=== PATIENT | female | born 1970 | race Caucasian/White ===

== ENCOUNTER 2020-12-03 07:18 | Day surgery (SDC) | payer MEDICARE, MEDICAID ==
[~2020-12-03 07:18] MED LIST: Bupivacaine 0.5% 10 ML SDV ONE; Lactated Ringers 1,000 ML IV SCH; Lidocaine 1% 20 ML MDV ONE; Lidocaine 2% 5 ML SDV ONE; Midazolam 1 MG/ML 2 ML SDV ONE; Ondansetron 4 MG/2 ML SDV ONE; Propofol 200 MG/20 ML SDV ONE; Sodium Chloride 0.9% 20 ML ONE; ceFAZolin 1 GM Vial ONE; fentaNYL 100 MCG/2 ML SDV ONE
--- NOTE | 2020-12-03 07:49 | PCM.PREANE ---
Preanesthetic Assessment - Anesthesia/Transfusion/Family Hx Anesthesia History: Prior Anesthesia Without Reaction Family History of Anesthesia Reaction: No Transfusion History: Unknown Intubation History: Unknown - Review of Systems General: No Symptoms Pulmonary: No Symptoms Cardiovascular: No Symptoms Gastrointestinal: No Symptoms Neurological: No Symptoms Other: Reports: None - Physical Assessment Vital Signs: Last Vital Signs Temp 36 C L 12/03/20 07:19 Pulse 72 12/03/20 07:19 Resp 16 12/03/20 07:19 BP 140/62 12/03/20 07:19 Pulse Ox 99 12/03/20 07:19 Height: 5 ft 6 in Weight: 107.048 kg ASA Class: 3 Mental Status: Alert & Oriented x3 Airway Class: Mallampati = 2 Dentition: Reports: Broken Tooth/Teeth, Missing Tooth/Teeth Thyro-Mental Finger Breadths: 3 Mouth Opening Finger Breadths: 3 ROM/Head Extension: Limited/Partial Lungs: Clear to Auscultation, Decreased Breath Sounds Cardiovascular: Regular Rate, Regular Rhythm - Lab Values: Laboratory Last Values POC Glucose 133 mg/dL (60-110) H 12/03/20 07:09 SARS-CoV-2 RNA (NICHOLAS) NEGATIVE (NEGATIVE) 12/03/20 06:15 - Allergies Allergies/Adverse Reactions: Allergies Allergy/AdvReac Type Severity Reaction Status Date / Time nathalia Allergy Swelling Verified 12/03/20 07:29 morphine Allergy Itching Verified 12/03/20 07:29 - Blood Blood Available: No - Anesthesia Plan Pre-Op Medication Ordered: None - Acknowledgements Anesthesia Type Planned: MAC Pt an Appropriate Candidate for the Planned Anesthesia: Yes Alternatives and Risks of Anesthesia Discussed w Pt/Guardian: Yes Pt/Guardian Understands and Agrees with Anesthesia Plan: Yes PreAnesthesia Questionnaire HEENT History: Reports: Cataract Cardiovascular History: Reports: CAD, Heart Failure (EF 25 %), High Cholesterol, Hypertension, CA (non STEM CA last summer), PVD Respiratory History: Reports: COPD Other Respiratory History: does not have inhalers Gastrointestinal History: Reports: None Genitourinary History: Reports: Acute Renal Failure (ESRD dyalised MW), Diabetic Nephropathy 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: Musculoskeletal History: Reports: Fracture Other Musculoskeletal History: currently has fx left ankle- is in a boot Neurological History: Reports: CVA, Neuropathy, Diabetic Other Neuro History: had a stroke 4 years ago- some weakness on left side Psychiatric History: Reports: Anxiety, Depression Endocrine/Metabolic History: Reports: Diabetes, Type I, IDDM, Obesity/BMI 30+ (BMI 38.1) Hematologic History: Reports: Blood Transfusion(s) Immunologic History: Reports: None Dermatologic History: Reports: Other (See Below) Other Dermatologic History: 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 in [place] - Past Surgical History Head Surgeries/Procedures: Reports: None HEENT Surgical History: Reports: Cataract Surgery Cardiovascular Surgical History: Reports: Coronary Artery Bypass, Vascular Surgery Other Cardiovascular Surgeries/Procedures: right Fem-Pop bypass graft, insertion of AV fistula left upper chest, insertion of Port-a-cath, possible left illiac endarterectomy GI Surgical History: Reports: Cholecystectomy, Colon, Colostomy (revision and reversal) Other GI Surgeries/Procedures: hx of Colostomy- revision and reversal Female Surgical History: Reports: Section (x2), Hysterectomy, Salpingo-Oophorectomy Musculoskeletal Surgical History: Reports: Amputation, Other (See Below) Other Musculoskeletal Surgeries/Procedures:: ORIF right ankle- screws removed, has had amputation of bilateral fore foot - SUBSTANCE USE Tobacco Use Status *Q: Current Every Day Tobacco User (1/2 ppd) Tobacco Use Within Last Twelve Months: Cigarettes Recreational Drug Use History: No - HOME MEDS Home Medications: Home Meds Acetaminophen 325 mg PO ASDIRECTED PRN 11/28/20 [History] Aspirin [Adult Low Dose Aspirin EC] 81 mg PO DAILY 11/28/20 [History] Clopidogrel Bisulfate [Plavix] 75 mg PO DAILY 11/28/20 [History] Gabapentin [Neurontin] 600 mg PO BID 11/28/20 [History] Gabapentin [Neurontin] 900 mg PO BEDTIME 11/28/20 [History] Insulin Glarg,Human.Rec.Analog [Lantus] 10 units SQ BEDTIME 11/28/20 [History] Insulin Lispro [HumaLOG] 0 unit SQ ASDIRECTED 11/28/20 [History] Sertraline HCl 100 mg PO DAILY 11/28/20 [History] atorvaSTATin Calcium [Atorvastatin Calcium] 80 mg PO BEDTIME 11/28/20 [History] carvediloL [Carvedilol] 6.25 mg PO BID 11/28/20 [History] - CURRENT (IN HOUSE) MEDS Current Meds: Current Medications Lactated Ringer's (Ringers, Lactated) 1,000 mls @ 125 mls/hr IV ASDIRECTED JAMES Discontinued Medications Bupivacaine HCl (Sensorcaine-Mpf 0.5%) Confirm Administered Dose 10 ml .ROUTE .STK-MED ONE Stop: 12/03/20 07:19 Cefazolin Sodium (Ancef) Confirm Administered Dose 2 gm .ROUTE .STK-MED ONE Stop: 12/03/20 06:57 Fentanyl (Sublimaze) Confirm Administered Dose 100 mcg .ROUTE .STK-MED ONE Stop: 12/03/20 06:57 Sodium Chloride (Normal Saline) Confirm Administered Dose 20 mls @ as directed .ROUTE .STK-MED ONE Stop: 12/03/20 06:57 Lidocaine (Xylocaine-Mpf 2%) Confirm Administered Dose 5 ml .ROUTE .STK-MED ONE Stop: 12/03/20 06:57 Lidocaine HCl (Xylocaine 1%) Confirm Administered Dose 20 ml .ROUTE .STK-MED ONE Stop: 12/03/20 07:19 Midazolam HCl (Versed 1 Mg/Ml) Confirm Administered Dose 2 mg .ROUTE .STK-MED ONE Stop: 12/03/20 06:57 Ondansetron HCl (Zofran) Confirm Administered Dose 4 mg .ROUTE .STK-MED ONE Stop: 12/03/20 06:57 Propofol (Diprivan 20 Ml) Confirm Administered Dose 200 mg .ROUTE .STK-MED ONE Stop: 12/03/20 06:57
[2020-12-03] MEDS ORDERED: Lactated Ringers 1,000 ML IV SCH (09:00)
--- NOTE | 2020-12-03 09:02 | PCM.OPNOTE ---
- General Post-Op/Procedure Note Date of Surgery/Procedure: 12/03/20 Operative Procedure(s): Removal of dual-lumen dialysis access catheter Pre Op Diagnosis: Hemodialysis-dependent renal failure Post-Op Diagnosis: Same Anesthesia Technique: Local Primary Surgeon: Javon Mcfarland Fluid Replacement, Intraop: 50 EBL in mLs: 5 Condition: Good Free Text/Narrative:: DICTATION [id number] CPT CODE 76684
--- NOTE | 2020-12-03 09:58 | PCM.POSTAN ---
POST ANESTHESIA ASSESSMENT - MENTAL STATUS Mental Status: Alert, Oriented - VITAL SIGNS Vital Signs: Last Vital Signs Temp 35.9 C L 12/03/20 08:30 Pulse 76 12/03/20 08:30 Resp 14 12/03/20 08:30 BP 120/57 L 12/03/20 08:30 Pulse Ox 95 12/03/20 08:30 - RESPIRATORY Respiratory Status: Respiratory Rate WNL, Airway Patent, O2 Saturation Stable - CARDIOVASCULAR CV Status: Pulse Rate WNL, Blood Pressure Stable - GASTROINTESTINAL GI Status: No Symptoms - PAIN Pain Score: 0 - POST OP HYDRATION Hydration Status: Adequate & Stable - OBSERVATIONS Free Text/Narrative:: No anesthesia problems
--- NOTE | 2020-12-03 09:59 | PCM48HPAN ---
Post Anesthesia Note - EVALUATION WITHIN 48HRS OF ANESTHETIC Vital Signs in Normal Range: Yes Patient Participated in Evaluation: Yes Respiratory Function Stable: Yes Airway Patent: Yes Cardiovascular Function Stable: Yes Hydration Status Stable: Yes Pain Control Satisfactory: Yes Nausea and Vomiting Control Satisfactory: Yes Mental Status Recovered: Yes Vital Signs: Last Vital Signs Temp 35.9 C L 12/03/20 08:30 Pulse 76 12/03/20 08:30 Resp 14 12/03/20 08:30 BP 120/57 L 12/03/20 08:30 Pulse Ox 95 12/03/20 08:30 - COMMENTS/OBSERVATIONS Free Text/Narrative:: No anesthesia problems, patient skipped recovery room of postoperative care.
--- NOTE | 2020-12-03 10:56 | OR ---
SURGEON: Javon Mcfarland M.D. DATE OF PROCEDURE: 12/03/2020 OPERATION PERFORMED: Removal of dual lumen dialysis access catheter. PRIMARY SURGEON: Javon Mcfarland M.D. ANESTHESIA: Local MAC. ASA CLASSIFICATION: III. PREOPERATIVE DIAGNOSES: Chronic renal failure, desire for catheter removal. POSTOPERATIVE DIAGNOSES: Chronic renal failure, desire for catheter removal. ESTIMATED BLOOD LOSS: 5 mL. INTRAOPERATIVE FLUID REPLACEMENT: Per Anesthesia. DESCRIPTION OF PROCEDURE: The patient was taken to the operating room and placed on the operating table in the supine position. Time-out was called for appropriate identification of the patient and procedure. Monitored anesthesia care was provided with light sedation. The surgical site was prepped with Hibiclens and sterile drapes were applied. The surgical site had been marked prior to the patient entering the operating room. The Dacron cuff was able to be palpated, and the skin overlying this was infiltrated with 1% Xylocaine and 0.5% Marcaine solution. A 1 cm to 1.5 cm skin incision was made and deepened through the subcutaneous tissue obtaining hemostasis with the use of electrocautery. Once the Dacron cuff was identified and freed up, the catheter was clamped, divided, and removed in 2 sections. Pressure was held at the right internal jugular puncture site for full 2 minutes. When the pressure was released, there was no bleeding. The wound was inspected for hemostasis and no other bleeding was noted. The incision was closed in 2 layers approximating the subcutaneous tissue with 3-0 Vicryl and the skin with subcuticular 4-0 Monocryl reinforced with half-inch Steri-Strips. Sterile Tegaderm pad was placed as a dressing. Sponge, needle, and instrument counts were all correct. The patient was returned to her room in stable condition. GÉNESIS / JOSR /[id number]
== END 2020-12-03 09:25 | disposition home or self-care (01) ==
LOC: MW.SDS 07:18
PROVIDERS: ATTEND Surgery
DX: Z45.2 Encounter for adjustment and management of vascular access device (principal); E11.22 Type 2 diabetes mellitus with diabetic chronic kidney disease; I13.0 Hypertensive heart and chronic kidney disease with heart failure and stage 1 through stage 4 chronic kidney disease, or unspecified chronic kidney disease; N17.9 Acute kidney failure, unspecified; N18.6 End stage renal disease; I25.10 Atherosclerotic heart disease of native coronary artery without angina pectoris; I50.30 Unspecified diastolic (congestive) heart failure; J44.9 Chronic obstructive pulmonary disease, unspecified; Z01.812 Encounter for preprocedural laboratory examination; Z20.822 Contact with and (suspected) exposure to COVID-19; E11.40 Type 2 diabetes mellitus with diabetic neuropathy, unspecified; I63.9 Cerebral infarction, unspecified; I25.2 Old myocardial infarction; E78.00 Pure hypercholesterolemia, unspecified; F17.210 Nicotine dependence, cigarettes, uncomplicated; E66.01 Morbid (severe) obesity due to excess calories; Z68.38 Body mass index [BMI] 38.0-38.9, adult; Z88.6 Allergy status to analgesic agent; Z91.018 Allergy to other foods; Z79.82 Long term (current) use of aspirin; Z79.4 Long term (current) use of insulin; Z79.899 Other long term (current) drug therapy; Z99.2 Dependence on renal dialysis; Z95.1 Presence of aortocoronary bypass graft; Z98.890 Other specified postprocedural states
CPT/HCPCS: 36589; 82962; J2250; J3490; U0002; 00300; J0690; J2405; J2704; J3010